=== PATIENT | female | born 1960 | race Caucasian/White ===

== ENCOUNTER 2017-08-06 12:34 | Inpatient (IN) | payer OTHER ==
[~2017-08-06] VITALS: Ht 152.4 cm; Wt 91.8 kg
[2017-08-06] VITALS (10 sets, daily range): BP systolic 96–131; BP diastolic 63–90; PULSE 92–104; TEMP 97.7–98.5
[~2017-08-06 12:34] MED LIST: ABILIFY5 MG PO; ACETAMINOPHEN W1 TA6 PO; ALBUTEROL S0.4 MG/ML INH; DILAUDID 2MG TAB2 MG PO; FLEXERIL10 MG PO; KLONOPIN 1MG1 MG PO; LASIX PO; LIPITOR40 MG PO; PERCOCET 5/321 UDTAB PO; PHENERGAN 25 TA25 MG PO; PROZAC 20MG20 MG PO; TYLENOL PM PO; ZOFRAN 4MG T4 MG/TAB PO
[2017-08-06] MEDS ORDERED: FLEXERIL 1010 MG/TAB PO (14:56)
[2017-08-06] MEDS ORDERED: ZANAFLEX 4MG TAB4 MG PO (14:57)
[2017-08-06] MEDS ORDERED: CORRECTIVE LAXAT5 MG PO (14:58)
[2017-08-06] MEDS ORDERED: HEMORRHOIDAL HYGI50% TP (14:58)
[2017-08-06] MEDS ORDERED: LIPITOR20 MG PO (15:00)
[2017-08-06] MEDS ORDERED: DESYREL 50MG50 MG PO (15:01)
[2017-08-06] MEDS ORDERED: KLONOPIN 1MG1 MG PO (15:02)
[2017-08-06] MEDS ORDERED: PROZAC60 MG (15:02)
[2017-08-06] MEDS ORDERED: DULCOLAX STOOL100 MG PO (15:11)
[2017-08-06] MEDS ORDERED: PERCOCET 325 MG1 TA2 PO (15:11)
[2017-08-07 05:48] VITALS: BP 105/80; PULSE 94; TEMP 98.1
[2017-08-07 07:25] LABS: BASO % 0.1 % (0.0-2.0); GRAN # 8.1 (1.4-6.5); GRAN % 88.7 % (42.2-75.2); LYMPH # 0.6 (1.2-3.4); LYMPH % 6.2 % (20.0-51.0); MEAN CELL VOLUME 101 fl (80.0-100.0); MEAN CORPUSCULAR HGB CONC 31 g/dl (33.0-37.0); MEAN PLATELET VOLUME 10.1 fl (7.4-10.4); MONO # 0.4 (0.1-0.6); MONO % 4.4 % (1.7-9.3); PLATELET COUNT 246 K/mm3 (130-400); RED BLOOD COUNT 3.34 M/mm3 (4.10-5.30); WHITE BLOOD COUNT 9.1 K/mm3 (4.8-10.8)
[2017-08-07 07:29] LABS: HEMATOCRIT 33.6 % (37.0-47.0); HEMOGLOBIN 10.3 g/dl (12.5-16.0); MEAN CORPUSCULAR HEMOGLOBIN 31 pg (27.0-31.0)
[2017-08-07 07:42] LABS: ADJUSTED CALCIUM 10.3 mg/dL (8.4-10.2); ALBUMIN 3.1 gm/dL (3.5-5.0); BILIRUBIN,TOTAL 1.2 mg/dL (0.0-1.0); CALCIUM 9.6 mg/dL (8.4-10.2); CREATININE, serum 1.95 mg/dL (0.52-1.25); POTASSIUM 5.2 mmol/L (3.4-5.0); TOTAL PROTEIN 6.8 gm/dL (6.4-8.2)
[2017-08-07 09:50] VITALS: BP 99/66; PULSE 88; TEMP 97.9
[2017-08-07 13:50] VITALS: BP 86/51; PULSE 98; TEMP 97.5
[2017-08-07 17:51] VITALS: BP 115/73; PULSE 94; TEMP 97.4
[2017-08-07 22:12] VITALS: BP 91/63; PULSE 83
[2017-08-08 02:28] VITALS: BP 97/51; PULSE 80; TEMP 97.9
[2017-08-08 04:58] VITALS: BP 114/67; PULSE 83; TEMP 97.8
[2017-08-08 07:41] LABS: ADJUSTED CALCIUM 10.4 mg/dL (8.4-10.2); ALBUMIN 2.9 gm/dL (3.5-5.0); BILIRUBIN,TOTAL 0.5 mg/dL (0.0-1.0); CALCIUM 9.5 mg/dL (8.4-10.2); CREATININE, serum 1.86 mg/dL (0.52-1.25); POTASSIUM 4.1 mmol/L (3.4-5.0); TOTAL PROTEIN 6.4 gm/dL (6.4-8.2)
[2017-08-08] MEDS ORDERED: PERCOCET 325 MG1 TA2 PO (08:06)
[2017-08-08 08:53] VITALS: BP 101/55; PULSE 94; TEMP 97.1
== END 2017-08-08 13:05 | disposition home or self-care (01) | DRG 418 ==
LOC: SDCO 12:34 → SURG 12:34
PROVIDERS: Surgery
PROC: 0FT44ZZ Resection of Gallbladder, Percutaneous Endoscopic Approach (ICD-10-PCS; principal; 2017-08-06 16:30)
DX: K80.00 Calculus of gallbladder with acute cholecystitis without obstruction (principal); K82.1 Hydrops of gallbladder; M79.7 Fibromyalgia; J45.909 Unspecified asthma, uncomplicated; F17.210 Nicotine dependence, cigarettes, uncomplicated
CPT/HCPCS: J0694; J1100; J1885; J2270; J2405; J2543; J2704; J7030; J7050; J7120; Q9967

== ENCOUNTER → 2018-09-24 | Outpatient (CLI) | payer OTHER ==
[~2018-09-24] MED LIST changes: +CORRECTIVE LAXAT5 MG PO; +DESYREL 50MG50 MG PO; +DULCOLAX STOOL100 MG PO; +FLEXERIL 1010 MG/TAB PO; +HEMORRHOIDAL HYGI50% TP; +LIPITOR20 MG PO; +PERCOCET 325 MG1 TA2 PO; +PROZAC60 MG; +ZANAFLEX 4MG TAB4 MG PO
== END ==
LOC: COL.CARD 12:39
DX: G25.9 Extrapyramidal and movement disorder, unspecified (principal); R68.89 Other general symptoms and signs; G43.719 Chronic migraine without aura, intractable, without status migrainosus; R27.0 Ataxia, unspecified; R41.89 Other symptoms and signs involving cognitive functions and awareness

== ENCOUNTER → 2021-06-15 | Outpatient (CLI) | payer OTHER | LOC: MHCPAIN 13:53 | DX: M47.817 Spondylosis without myelopathy or radiculopathy, lumbosacral region (principal); M53.3 Sacrococcygeal disorders, not elsewhere classified; M54.16 Radiculopathy, lumbar region | CPT/HCPCS: G0463 ==

== ENCOUNTER → 2021-06-30 | Outpatient (CLI) | payer OTHER | LOC: MHCPAIN 13:22 | CPT/HCPCS: J1100; Q9967 ==